=== PATIENT | female | born 1995 | race Caucasian/White ===

== ENCOUNTER 2021-03-25 18:27 | Emergency (ER) | payer BC, MEDICAID ==
[2021-03-25 18:56] VITALS: PULSE 79
[2021-03-25 19:04] LABS: CHLORIDE,CL 106 mmol/L (98-107); SODIUM,NA 139 mmol/L (136-145)
[2021-03-25 19:06] LABS: ANION GAP 10.5 mmol/L (5-15)
[2021-03-25 19:29] VITALS: BP 133/72
== END 2021-03-25 19:25 | disposition home or self-care (01) ==
LOC: VM.ED 18:27
DX: O72.1 Other immediate postpartum hemorrhage (principal); Z88.0 Allergy status to penicillin; Z91.040 Latex allergy status; Z88.1 Allergy status to other antibiotic agents
CPT/HCPCS: 36415; 80053; 84702; 85025; 99283; 99284